=== PATIENT | male | born 2005 | race Caucasian/White ===

== ENCOUNTER 2024-01-16 16:29 | Emergency (ER) | payer SELFPAY ==
[2024-01-16] MEDS: Diphtheria,Pertussis(Acell),Tetanus Vaccine 0.5 ML Syringe IM ONE (17:55)
[2024-01-16] MEDS: Lidocaine 1% with EPINEPHrine 1:100,000 10 ML MDV INJECT ONE (17:56)
== END 2024-01-16 18:12 | disposition home or self-care (01) ==
LOC: MW.ED 16:29
DX: S61.211A Laceration without foreign body of left index finger without damage to nail, initial encounter (principal); Z23 Encounter for immunization; W26.0XXA Contact with knife, initial encounter; Y93.89 Activity, other specified
CPT/HCPCS: 12001; 90471; 90715; 99282-25; J3490

== ENCOUNTER 2024-07-03 11:36 | Emergency (ER) | payer BC ==
[2024-07-03] MEDS: Ketorolac 30 MG/ML SDV IM ONE (13:04)
[2024-07-03] MEDS: Ondansetron 4 MG Tab.DIS PO ONE (13:05)
== END 2024-07-03 14:03 | disposition home or self-care (01) ==
LOC: MW.ED 11:36
DX: J02.9 Acute pharyngitis, unspecified (principal); Z79.899 Other long term (current) drug therapy; Z75.8 Other problems related to medical facilities and other health care
CPT/HCPCS: 71046; 87428; 96372; 99284; A9270; J1885